=== PATIENT | male | born 1970 | race Caucasian/White ===

== ENCOUNTER 2018-08-26 11:26 | Emergency (ER) | payer OTHER ==
[~2018-08-26] VITALS: Ht 177.8 cm; Wt 145.1 kg
--- NOTE | 2018-08-26 11:43 | NUR ---
Dr Sampson at the bedside for MSE.
[2018-08-26] MEDS ORDERED: KETOROLAC TROMETHAMINE 30 MG INJ IM ONE (11:45)
[2018-08-26] MEDS ORDERED: LIDOCAINE 5% PATCH TD ONE ×2 (11:45→11:50)
[2018-08-26] MEDS ORDERED: KETOROLAC TROMETHAMINE 15 MG INJ ONE (11:50)
[2018-08-26 13:03] VITALS: BP 133/79
--- NOTE | 2018-08-26 13:07 | NUR ---
Patient discharged to home in stable conditon. Written and verbal after care instructions given. Patient verbalizes understanding of instructions.
== END 2018-08-26 13:14 | disposition home or self-care (01) ==
LOC: ER 11:26
DX: S20.212A Contusion of left front wall of thorax, initial encounter (principal); W05.1XXA Fall from non-moving nonmotorized scooter, initial encounter; Y93.89 Activity, other specified; Y92.89 Other specified places as the place of occurrence of the external cause; Y99.8 Other external cause status
CPT/HCPCS: 71101; 96372; 99283; J1885; A4663